=== PATIENT | male | born 1980 | race Caucasian/White ===

== ENCOUNTER 2023-05-22 16:01 | Observation (INO) ==
[2023-05-22 16:14] VITALS: BMI 31.4
--- NOTE | 2023-05-22 16:49 | DR.ABDMALE ---
HPI Time seen Time Seen by Provider: 05/22/23 16:44 PCP Primary Care Physician: MARTY MANCUSO HPI comment HPI Comment: c/o several day s ruq pain some nausea recent us showed sludge no fever no sob Complaint Chief Complaint:: PT STATES HE IS HAVING RIGHT UPPER QUAD PAIN, NAUSEA, VOMITING AND DIARRHEA. WAS TOLD TO COME HERE BY DR. CAMPOS AND JAM WAGNER. COVID-19 Coronavirus risk:travel/contact w/high risk person: No Has patient experienced Coronavirus symptoms: No Mode of arrival Mode of Arrival: Ambulatory Timing Onset of Chief Complaint: 05/21/23 PMH PMH Past Medical History: No Past Surgical History: No Family History History of Family Medical Conditions: Yes Family Medical History: Diabetes Mellitus, Cancer and Hypertension Social History Type of Tobacco Use: Cigarettes Does any household member use tobacco: Yes Alcohol Use: None Lives With: Family Lives Where: Home Travel Risk Coronavirus risk:travel/contact w/high risk person: No Has patient experienced Coronavirus symptoms: No Infectious screening In the last 2 months have you had wt loss of >10#?: NO Have you had fever, night sweats or hemotysis?: No Have you traveled outside the country in the last 6 months?: No Isolation: Standard PE Vital Signs Vital Signs: Temp Pulse Resp BP Pulse Ox O2 Del Method 05/22/23 16:09 98.2 F 107 H 20 120/74 97 Room Air Head Head Exam: Normal Inspection ENT ENT Exam: Normal Exam Chest Chest Inspection: Normal Inspection Abdominal Exam Abdominal Exam: Normal Inspection, Normal Bowel Sounds and Soft; negative Distention, Tenderness or Guarding Back Back Exam: Normal Inspection Skin Skin Exam: Warm COURSE Treatment Treatment: cat scan abd Opioid Opioid Risk Tool Age ([place] if 16-45): Yes History of Preadolescent Sexual Abuse: No Total: 1 Total Score Risk Category: Low Risk Copyright: Maikol SCHUSTER predicting aberrant behaviors Discharge Plan Diagnosis Discharge Problem: Cholelithiasis Qualifiers: Cholelithiasis location: gallbladder Discharge Plan Patient Disposition: 01 HOME, SELF-CARE Condition: Stable Health Concerns: Post Hospitalization: new medications and changes needed to prevent readmission or further decline. Pt educated and given instructions on all concerns. Plan of Treatment: Continue with present treatment and follow up plan. Pt is to keep follow up appointment as instructed and take medications as ordered. Follow ups/Referrals Follow ups/Referrals: NISHANT MANCUSO [Primary Care Provider] - 3 days Instructions Stand Alone Forms: Post Hospital Follow Up Care
[2023-05-22 16:59] LABS: BASOPHILS % (AUTO) 0.3 % (0.2-1.0); EOSINOPHILS # (AUTO) 2.5 x10^3/uL (0.0-0.2); EOSINOPHILS % (AUTO) 17.7 % (0.9-2.9); HEMATOCRIT 39.6 % (42.0-54.0); HEMOGLOBIN 12.5 g/dL (13.5-18.0); LYMPHOCYTES # (AUTO) 2.3 X10^3/uL (1.3-2.9); LYMPHOCYTES % (AUTO) 16.4 % (21.0-51.0); MEAN CORPUSCULAR HEMOGLOBIN 23.1 pg (27.0-34.0); MEAN CORPUSCULAR HGB CONC 31.6 g/dL (33.0-35.0); MEAN PLATELET VOLUME 8.5 fL (7.4-11.0); MONOCYTES # (AUTO) 0.7 x10^3/uL (0.3-0.8); MONOCYTES % (AUTO) 4.7 % (0.0-13.0); NEUTROPHILS # (AUTO) 8.6 x10^3/uL (2.2-4.8); NEUTROPHILS % (AUTO) 60.9 % (42.0-75.0); PLATELET COUNT 261 X10^3/uL (150.0-450.0); RED BLOOD COUNT 5.43 X10^6/uL (4.7-6.0); RED CELL DISTRIBUTION WIDTH 17.4 % (11.6-16.5); WHITE BLOOD COUNT 14.2 X10^3/uL (3.6-10.0)
[2023-05-22 17:10] LABS: ALANINE AMINOTRANSFERASE 25 Units/L (12-78); ALBUMIN 3.2 g/dL (3.4-5.0); ALKALINE PHOSPHATASE 102 Units/L (46-116); AMYLASE 37 Units/L (25-115); ASPARTATE AMINO TRANSFERASE 13 Units/L (15-37); BLOOD UREA NITROGEN 7 mg/dL (7-18); CALCIUM 8.2 mg/dL (8.5-10.1); CARBON DIOXIDE 26.8 mmol/L (21-32); CHLORIDE 105 mmol/L (98-107); COR CA(FOR HYPOALB) 8.8 mg/dL (8.5-10.1); CREATININE 1.38 mg/dL (0.70-1.30); GLUCOSE 101 mg/dL (65-99); LIPASE 19 Units/L (16-77); POTASSIUM 3.5 mmol/L (3.5-5.1); SODIUM 140 mmol/L (136-145); TOTAL PROTEIN 6.3 g/dL (6.4-8.2); eGFR NON BLACK RACES > 60 (>60)
[2023-05-22 17:30] LABS: ANISOCYTOSIS SLIGHT; HYPOCHROMASIA 1+; MICROCYTOSIS SLIGHT; PLATELET MORPHOLOGY COMMENT NORMAL (NORMAL)
[2023-05-22] MEDS: NS 100 ML IV 100 ML ONE (18:05)
[2023-05-22] MEDS: OMNIPAQUE 350 mg/mL 100 mL BTL 100 ML ONE (18:05)
--- NOTE | 2023-05-22 18:08 | CT ---
EXAM: CT ABDOMEN AND PELVIS WITH CONTRAST HISTORY: PT STATES HE IS HAVING RIGHT UPPER QUAD PAIN, NAUSEA, VOMITING AND DIARRHEA. WAS TOLD TO COME HERE BY DR. ACMPOS AND JAM WAGNER.; COMPARISON: None TECHNIQUE: Axial images were acquired of the abdomen and pelvis with IV contrast. Sagittal and coronal reformatt ed images were provided. All images were reviewed in a variety of windows and levels. RADIATION REDUCTION TECHNIQUE: Automated exposure control, adjustment of the mA and/or kV according t o patient size, or iterative reconstruction techniques were used. FINDINGS: LOWER THORAX: The visualized lower lung zones are clear. The heart size is within normal limits. Ther e is no evidence of a pericardial effusion. LIVER: No intrahepatic focal lesions are seen. No evidence of intrahepatic or extrahepatic duct dilat ion. GALLBLADDER: The gallbladder is unremarkable. SPLEEN: The spleen enhances homogenously and is unremarkable. PANCREAS: The pancreas enhances homogenously and is unremarkable. ADRENAL GLANDS: The adrenal glands enhance homogenously and are unremarkable. : The kidneys enhance homogenously. Their collecting system is of normal caliber. URINARY BLADDER: The urinary bladder is unremarkable. There are no soft tissue masses seen in the uri nary bladder. VESSELS: The abdominal aorta is normal in size without evidence of aneurysm or dissection. The celiac artery, superior mesenteric artery, [place] renal arteries, and inferior mesenteric artery are patent . GI: The stomach and small bowel is unremarkable. There are no inflammatory changes seen in the right lower quadrant to suggest secondary signs of acute appendicitis. Normal appendix right lower quadran t. LYMPHNODES AND MESENTERY: There is no evidence of retroperitoneal lymphadenopathy. BONES: The visualized bones are intact. There are no concerning lytic or blastic lesions identified. IMPRESSION: No acute abdominal or pelvic pathology. THIS IS AN ELECTRONICALLY VERIFIED FINAL REPORT 05/22/2023 6:05 PM - Electronically signed by Boaz Nava MD
[2023-05-22] MEDS ORDERED: NS 100 ML IV 100 ML ONE (19:39)
[2023-05-22] MEDS ORDERED: ZOSYN VIAL 3.375 GRAMS IV ONE (19:39)
[2023-05-22] MEDS: ZOSYN VIAL 3.375 GRAMS 3.375 G in NS 100 ML IV 100 ML IV ONE (19:43)
[2023-05-22] MEDS: NS 1,000 ML IV 1,000 ML IV SCH (21:34)
[2023-05-22] MEDS: MORPHINE SULFATE INJ 2 MG INJ IVP PRN (23:19)
[2023-05-22] MEDS: ZOFRAN INJ 4 MG VIAL IVP PRN (23:19)
[2023-05-23 06:18] LABS: BASOPHILS % (AUTO) 0.3 % (0.2-1.0); EOSINOPHILS # (AUTO) 2.2 x10^3/uL (0.0-0.2); EOSINOPHILS % (AUTO) 18.8 % (0.9-2.9); HEMATOCRIT 36.8 % (42.0-54.0); HEMOGLOBIN 11.7 g/dL (13.5-18.0); LYMPHOCYTES # (AUTO) 2.3 X10^3/uL (1.3-2.9); LYMPHOCYTES % (AUTO) 19.7 % (21.0-51.0); MEAN CORPUSCULAR HEMOGLOBIN 23.3 pg (27.0-34.0); MEAN CORPUSCULAR HGB CONC 31.7 g/dL (33.0-35.0); MEAN CORPUSCULAR VOLUME 73.5 fL (80.0-100.0); MONOCYTES # (AUTO) 0.6 x10^3/uL (0.3-0.8); MONOCYTES % (AUTO) 5.4 % (0.0-13.0); NEUTROPHILS # (AUTO) 6.7 x10^3/uL (2.2-4.8); NEUTROPHILS % (AUTO) 55.8 % (42.0-75.0); PLATELET COUNT 247 X10^3/uL (150.0-450.0); RED BLOOD COUNT 5.01 X10^6/uL (4.7-6.0); WHITE BLOOD COUNT 11.9 X10^3/uL (3.6-10.0)
[2023-05-23 06:40] LABS: ALANINE AMINOTRANSFERASE 28 Units/L (12-78); ALBUMIN 2.9 g/dL (3.4-5.0); ALKALINE PHOSPHATASE 101 Units/L (46-116); ASPARTATE AMINO TRANSFERASE 16 Units/L (15-37); BLOOD UREA NITROGEN 7 mg/dL (7-18); CALCIUM 7.9 mg/dL (8.5-10.1); CARBON DIOXIDE 23.9 mmol/L (21-32); CHLORIDE 106 mmol/L (98-107); COR CA(FOR HYPOALB) 8.8 mg/dL (8.5-10.1); CREATININE 1.44 mg/dL (0.70-1.30); GLUCOSE 93 mg/dL (65-99); MAGNESIUM 1.5 mg/dL (2.0-2.9); POTASSIUM 3.2 mmol/L (3.5-5.1); SODIUM 142 mmol/L (136-145); TOTAL PROTEIN 5.9 g/dL (6.4-8.2); eGFR NON BLACK RACES 58 (>60)
[2023-05-23 07:22] LABS: PLATELET MORPHOLOGY COMMENT NORMAL (NORMAL)
[2023-05-23 07:24] LABS: ANISOCYTOSIS SLIGHT; HYPOCHROMASIA 1+; MICROCYTOSIS SLIGHT
[2023-05-23 09:49] VITALS: RESP 20
[2023-05-23] MEDS: DIPRIVAN VIAL 20 ML ONE (12:16)
[2023-05-23] MEDS: D5 LR 1,000 ML 1,000 ML IV ONE (12:19)
[2023-05-23] MEDS ORDERED: STERILE WATER IRRIGATION IR ONE (13:28)
[2023-05-23] MEDS ORDERED: NS IV ONE (15:00)
[2023-05-23] MEDS ORDERED: KINEVAC IV ONE (15:00)
--- NOTE | 2023-05-23 16:17 | NM ---
EXAM: HIDA/HEPATOBILIARY SCAN W/EF HISTORY: pt states he has had GERD, N/V , abdominal bloating x 2 months Neg US done 05/21/2023 ; 6.5mCi 99mTc Ch [id number] Kinevac ; patient is inpatient COMPARISON: CT abdomen and pelvis 05/22/2023 TECHNIQUE: 6.5 mCi Tc-99m mebrofenin were injected intravenously. Planar images were obtained for 90 minutes. FINDINGS: There was prompt uptake and excretion by the liver. Activity is seen in the gallbladder by 43 minutes with no evidence of cystic duct obstruction. Activity is seen in the small bowel at 10 minutes with no evidence of common bile duct obstruction. At 60 minutes, the technologist injected 2.0 mcg of cholecystokinin. Gallbladder ejection fraction wa s calculated at 0%. Normal gallbladder ejection fraction is greater than 35%. Low gallbladder eject ion fraction can be seen with gallbladder dysfunction and biliary dyskinesia. IMPRESSION: 1. Findings suggesting gallbladder dysfunction THIS IS AN ELECTRONICALLY VERIFIED FINAL REPORT 05/23/2023 4:14 PM - Electronically signed by Ish Saucedo MD
[2023-05-23 16:37] VITALS: BP 115/56; PULSE 71; TEMP 97.6; O2SAT 99
[2023-05-23] MEDS ORDERED: PROTONIX TAB 40 MG PO SCH (21:00)
== END 2023-05-23 17:05 | disposition home or self-care (01) ==
LOC: ER 16:01 → MED/SURG 16:01
PROVIDERS: ADMIT Surgery; ATTEND Surgery
DX: R11.2 Nausea with vomiting, unspecified; K21.9 Gastro-esophageal reflux disease without esophagitis; K25.9 Gastric ulcer, unspecified as acute or chronic, without hemorrhage or perforation; K31.3 Pylorospasm, not elsewhere classified; R19.7 Diarrhea, unspecified; E86.0 Dehydration; R10.11 Right upper quadrant pain